=== PATIENT | male | born 1995 | race Caucasian/White ===

== ENCOUNTER 2019-02-04 20:12 | Emergency (ER) | payer MEDICAID ==
[~2019-02-04] VITALS: Ht 175.3 cm; Wt 95.3 kg
[2019-02-04 20:35] VITALS: BP 129/90
[2019-02-04] MEDS ORDERED: KETOROLAC 30 MG/ML VIAL IM ONE (22:55)
[2019-02-04] MEDS ORDERED: DIAZEPAM 5 MG TAB PO ONE (22:55)
[2019-02-04] MEDS ORDERED: KETOROLAC 60 MG/2 ML VIAL IM ONE (23:06)
[2019-02-05 01:11] VITALS: BP 100/52
== END 2019-02-05 01:08 | disposition home or self-care (01) ==
LOC: MED 20:12
DX: M26.602 Left temporomandibular joint disorder, unspecified (principal)
CPT/HCPCS: 70110; 96372; 99283; J1885

== ENCOUNTER 2021-04-28 20:46 | Emergency (ER) | payer MEDICAID ==
[~2021-04-28] VITALS: Ht 175.3 cm; Wt 83.9 kg
[2021-04-28 21:28] VITALS: BP 150/78
--- NOTE | 2021-04-28 21:31 | NUR ---
TO LOBBY A/W BED AMBULATORY
--- NOTE | 2021-04-29 00:05 | NUR ---
SEEN AND EXAMINED BY CHRISTOFER
[2021-04-29] MEDS ORDERED: PSEU120T22 PO (00:14)
[2021-04-29 00:56] VITALS: BP 121/79
--- NOTE | 2021-04-29 00:56 | NUR ---
Patient discharged with v/s stable. Written and verbal after care instructions given and explained. Patient alert, oriented and verbalized understanding of instructions. Ambulatory with steady gait. All questions addressed prior to discharge. ID band removed. Patient advised to follow up with PMD. Rx of SUDAFED, given. Patient educated on indication of medication including possible reaction and side effects. Opportunity to ask questions provided and answered.
== END 2021-04-29 00:56 | disposition home or self-care (01) ==
LOC: MED 20:46
DX: H92.02 Otalgia, left ear (principal); R09.81 Nasal congestion
CPT/HCPCS: 99282

== ENCOUNTER 2023-01-06 13:51 | Emergency (ER) | payer OTHER, MEDICAID ==
[~2023-01-06] VITALS: Ht 172.7 cm; Wt 86.2 kg
[~2023-01-06 13:51] MED LIST: PSEU120T22 PO
[2023-01-06 14:21] VITALS: BP 141/99; PULSE 72; RESP 17; TEMP 98.4; O2SAT 100
[2023-01-06] MEDS ORDERED: ATA25 PO (14:43)
[2023-01-06] MEDS ORDERED: HYD1C TP (14:43)
[2023-01-06] MEDS ORDERED: CEPH-588 PO (14:43)
[2023-01-06 15:17] VITALS: BP 141/99; PULSE 72; RESP 17; TEMP 98.4; O2SAT 100
== END 2023-01-06 15:18 | disposition home or self-care (01) ==
LOC: MED 13:51
DX: L20.9 Atopic dermatitis, unspecified (principal); L03.115 Cellulitis of right lower limb; B35.3 Tinea pedis; Z79.899 Other long term (current) drug therapy; Z98.890 Other specified postprocedural states
CPT/HCPCS: 99283

== ENCOUNTER 2023-09-20 19:46 | Emergency (ER) | payer OTHER, MEDICAID ==
[~2023-09-20] VITALS: Ht 177.8 cm; Wt 81.6 kg
[~2023-09-20 19:46] MED LIST changes: +ATA25 PO; +CEPH-588 PO; +HYD1C TP
[2023-09-20 20:05] VITALS: BP 149/90; PULSE 88; RESP 16; TEMP 99; O2SAT 98
[2023-09-20 20:31] VITALS: O2SAT 98
[2023-09-20 20:39] LABS: APPEARANCE,URINE CLEAR (CLEAR); BILIRUBIN,URINE 1+ (NEGATIVE); BLOOD, URINE TRACE-I (NEGATIVE); COLOR,URINE YELLOW (YELLOW); LEUKOCYTE ESTERASE ,URINE NEGATIVE (NEGATIVE); NITRITE, URINE NEGATIVE (NEGATIVE); PROTEIN,URINE NEGATIVE (NEGATIVE); UGLUCOSE NEGATIVE (NEGATIVE); UROBILINOGEN,URINE 0.2 EU/dL (0.2 - 1)
[2023-09-20 20:42] LABS: ICTOTEST NEGATIVE (NEGATIVE)
[2023-09-20] MEDS: KETOROLAC 30 MG/ML VIAL IM ONE (21:42)
== END 2023-09-20 21:42 | disposition home or self-care (01) ==
LOC: MED 19:46
DX: M54.50 Low back pain, unspecified (principal); R33.9 Retention of urine, unspecified; Z79.899 Other long term (current) drug therapy
CPT/HCPCS: 81003; 87491; 96372; 99283; J1885